=== PATIENT | female | born 1970 ===

== ENCOUNTER 2021-08-04 12:54 | Outpatient (REF) | payer OTHER, SELFPAY ==
--- NOTE | ~2021-08-04 | MM_ITS ---
EXAMINATION: MM SCREENING DIGITAL BREAST TOMOSYNTHESIS, BILATERAL CLINICAL INFORMATION: Screening. Asymptomatic. The lifetime risk of breast cancer based on the Tyrer-Cuzick Model is 10%. COMPARISON: Outside mammography: 02/03/2018, 12/17/2013 ([facility]). TECHNIQUE: Digital breast tomosynthesis is performed in both the craniocaudal and mediolateral oblique views along with computer-aided detection (CAD). Synthesized 2D images are generated from the tomosynthesis. FINDINGS: There are scattered areas of fibroglandular density (ACR BI-RADS breast composition Category b). There are no significant masses, abnormal calcifications, or other abnormalities. Parenchymal pattern is similar to prior studies. No developing density or interval architectural abnormality. Skin contours are smooth. MM/MM tomosynthesis screening BI IMPRESSION: No mammographic evidence of malignancy. ASSESSMENT: BI-RADS 1: Negative RECOMMENDATION: Routine annual mammography screening. This patient's information was entered into a reminder system with a target due date for their next mammogram.
--- NOTE | ~2021-08-04 | MM_ITS ---
EXAMINATION: BONE DENSITOMETRY CLINICAL INDICATION: Asymptomatic menopausal state. COMPARISON: None (current study represents initial baseline exam). TECHNIQUE: Using a [employer] DXA System (software version: 13.1) manufactured by [employer], dual-energy x-ray absorptiometry was performed of the lumbar spine and left hip. The images are of good technical quality. Summary results are attached. FINDINGS: AP SPINE L1-L4: BMD 1.308 g/cm2, Z-score 1.9, T-score 1.1, normal. LEFT FEMUR, NECK: BMD 0.847 g/cm2, Z-score -0.3, T-score -1.4, osteopenia. LEFT FEMUR, TOTAL: BMD 0.841 g/cm2, Z-score -0.6, T-score -1.3, osteopenia. IDENTIFIED RISK FACTORS: Low calcium intake, family history (parental hip fracture). HISTORY OF FRACTURE: None listed. MEDICATIONS: Calcium supplements or multivitamin, vitamin D. MM/XR DEXA axial skeleton IMPRESSION: 1. DIAGNOSIS: Osteopenia based on the lowest T-score value of -1.4 in the femoral neck applying World Health Organization criteria. 2. 10-YEAR FRACTURE RISK PREDICTION, FRAX: Major osteoporotic fracture (clinical spine, forearm, hip or shoulder) 10.2%. Hip fracture 0.4%. 3. Treatment Recommendations: NOF guidelines recommend consideration for treatment in postmenopausal women and men age 50 and older presenting with the following: -A hip or vertebral (clinical or morphometric) fracture. -T-score less than or equal to -2.5 at the femoral neck or spine after appropriate evaluation to exclude secondary causes. -Low bone mass at the hip or spine and a 10-year fracture probability by FRAX of greater than or equal to 3% for hip fracture or greater than or equal to 20% for major osteoporotic fracture based on the [place] adapted WHO algorithm. 4. Other Recommendations: All treatment decisions require clinical judgment and consideration of individual patient factors, including patient preferences, comorbidities, previous drug use, risk factors not captured in the FRAX model (e.g. frailty, falls, vitamin D deficiency, increased bone turnover, interval significant decline in bone density) and possible under or overestimation of fracture risk by FRAX. Additional medical evaluation for secondary cause of low bone mineral density may be appropriate. FUTURE SCAN RECOMMENDATION: People with diagnosed cases of osteoporosis or at high risk for fracture should have regular bone mineral density tests. For patients eligible for Medicare, routine testing is allowed once every 2 years. The testing frequency can be increased to one year for patients who have rapidly progressing disease, those who are receiving or discontinuing medical therapy to restore bone mass, or have additional risk factors.
== END 2021-08-04 12:55 | disposition home or self-care (01) ==
LOC: HO.MAMMO 12:54
PROVIDERS: PCP Internal Medicine; Visit Provider Internal Medicine
DX: Z12.31 Encounter for screening mammogram for malignant neoplasm of breast (principal); Z13.820 Encounter for screening for osteoporosis; Z78.0 Asymptomatic menopausal state
CPT/HCPCS: 77063; 77067; 77080

== ENCOUNTER 2022-08-06 10:27 | Outpatient (REF) | payer OTHER, SELFPAY ==
--- NOTE | ~2022-08-06 | MM_ITS ---
EXAMINATION: MM SCREENING DIGITAL BREAST TOMOSYNTHESIS, BILATERAL CLINICAL INFORMATION: Screening. Asymptomatic. The lifetime risk of breast cancer based on the Tyrer-Cuzick Model is 14.1%. COMPARISON: Mammography: August 04, 2021 and studies dating back to December 17, 2013 TECHNIQUE: Digital breast tomosynthesis is performed in both the craniocaudal and mediolateral oblique views along with computer-aided detection (CAD). Synthesized 2D images are generated from the tomosynthesis. FINDINGS: There are scattered areas of fibroglandular density (ACR BI-RADS breast composition Category b). There are no significant masses, abnormal calcifications, or other abnormalities. MM/MM tomosynthesis screening BI IMPRESSION: No significant changes from prior exam. ASSESSMENT: BI-RADS 1: Negative RECOMMENDATION: Routine annual mammography screening. This patient's information was entered into a reminder system with a target due date for their next mammogram.
== END 2022-08-06 10:28 | disposition home or self-care (01) ==
LOC: HO.MAMMO 10:27
PROVIDERS: PCP Internal Medicine; Visit Provider Internal Medicine
DX: Z12.31 Encounter for screening mammogram for malignant neoplasm of breast (principal)
CPT/HCPCS: 77063; 77067

== ENCOUNTER 2022-10-16 08:22 | Outpatient (REF) | payer OTHER, SELFPAY ==
[2022-10-16 10:42] LABS: MANUAL DIFF FLAG NO
[2022-10-16 10:49] LABS: Basophils Percent Auto 0.8 % (0-2); Eosinophils Absolute Auto 0.3 X10*3/uL (0.0-0.4); Eosinophils Percent Auto 5.9 % (0-4); Hematocrit 38.7 % (37.0-47.0); Hemoglobin 12.3 g/dl (12.0-16.0); Imm Gran Abs Auto 0.01 X10*3/uL (0.00-0.03); Imm Gran Pct Auto 0.2 % (0.0-0.4); Lymphocytes Absolute Auto 1.4 X10*3/uL (1.2-4.9); Lymphocytes Percent Auto 27.6 % (20-40); Mean Corpuscular HGB Conc 31.8 g/dl (31.0-35.0); Mean Corpuscular Hemoglobin 31.3 pg (27.0-33.0); Mean Corpuscular Volume 98.5 fL (80.0-98.0); Mean Platelet Volume 12.4 fL (9.4-12.3); Monocytes Absolute Auto 0.3 X10*3/uL (0.1-1.2); Monocytes Percent Auto 6.5 % (2-11); Neutrophils Absolute Auto 2.9 x10*3/uL (2.0-8.3); Platelet Count 170 X10*3/uL (160-400); Red Blood Count 3.93 X10*6/uL (4.20-5.50); Red Cell Distribution Width 13.5 % (11.0-16.0); White Blood Count 4.9 X10*3/uL (4.8-10.8)
[2022-10-16 11:03] LABS: Alanine Aminotransferase 23 U/L (0-31); Alkaline Phosphatase 49 U/L (39-117); Anion Gap 10 (12-20); Aspartate Amino Transferase 24 U/L (5-31); Bilirubin Total 0.8 mg/dL (0.0-1.0); Blood Urea Nitrogen 20 mg/dL (9-16); Calcium 9.4 mg/dL (8.4-10.2); Carbon Dioxide 29 mmol/L (22-29); Chloride 109 mmol/L (96-108); Cholesterol 181 mg/dL; Estimated Glomerular Filt Rate > 60; Glucose Fasting 89 mg/dL (60-99); HDL Cholesterol 66 mg/dL; LDL Cholesterol Calculated 100 mg/dl; Sodium 144 mmol/L (135-145); Total Protein 6.7 g/dL (6.5-8.0); Triglycerides 75 mg/dL
== END 2022-10-16 08:23 | disposition home or self-care (01) ==
LOC: HO.10HDL 08:22
PROVIDERS: Visit Provider Internal Medicine
DX: E78.5 Hyperlipidemia, unspecified (principal); G35 Multiple sclerosis
CPT/HCPCS: 36415; 80053; 80061; 85025

== ENCOUNTER 2023-08-12 10:10 | Outpatient (REF) | payer OTHER, SELFPAY | END 2023-08-12 10:11 | disposition home or self-care (01) | LOC: HO.MAMMO 10:10 | PROVIDERS: PCP Internal Medicine; Visit Provider Internal Medicine | DX: Z12.31 Encounter for screening mammogram for malignant neoplasm of breast (principal) | CPT/HCPCS: 77063; 77067 ==

== ENCOUNTER → 2023-08-12 10:15 | Outpatient (BNV) | payer OTHER, SELFPAY | PROVIDERS: PCP Internal Medicine; Visit Provider Radiology Diagnostic Radiology | DX: Z12.31 Encounter for screening mammogram for malignant neoplasm of breast (principal) | CPT/HCPCS: 77063; 77067 ==

== ENCOUNTER 2023-09-12 09:56 | Outpatient (AMB) | payer OTHER, SELFPAY ==
[2023-09-12 10:04] VITALS: BP 108/78; BMI 20.8
--- NOTE | 2023-09-12 10:04 | A.OFFPC_ITS ---
Vital Signs 09/12/23 10:04 Height 5 ft 5 in Weight 125 lb BMI 20.8 BP 108/78 Blood Pressure Location Lt brachial Position Sitting Intake Visit Reasons: Diarrhea/ 2 Months Intake Note: Patient here c/o diarrhea for 3 month Department Administrator Required: No Accompanied by: Self / Same As Patient Allergies acetaminophen [From Percocet] Allergy (Severe, Verified 09/12/23 10:20) tachycardia oxycodone [From Percocet] Allergy (Severe, Verified 09/12/23 10:20) tachycardia Penicillins Allergy (Intermediate, Verified 09/12/23 10:20) tingling Medication List - Last Reconciled 09/12/23 by Opal Parra MD No Known Home Meds Tobacco use date assessed: 09/12/23 Dental Screening Dental Screen Date: 09/12/23 Did you have a dental visit in the last 12 months?: Yes Did you have a dental problem in the last 6 months where you did not have access to dental care?: No Was dental information given to patient?: Patient has dentist HPI HPI Comments History of Present Illness Details This is a 52-year-old female with multiple sclerosis that complains of diarrhea that started in May 2023. Occasionally has fresh blood in the toilet paper after a bowel movement. Denies any fever. Has nausea with vomiting every 3 weeks since May 2023. No sick contacts in her household. No recent traveling or eating raw hamburgers or oysters. No change in diet. She has unintentionally lost about 8-10 lb since May. Sister of stomach cancer at 63 years old last month. ON LICENSE OF [facility] Medical History (Updated 09/12/23 @ 10:32 by Opal Parra MD) Postmenopausal Dyslipidemia Multiple sclerosis Surgical History Hx of colonoscopy History of ankle surgery History of Family History (Updated 09/12/23 @ 10:33 by Opal Parra MD) Mother Diabetes Hypertension Glaucoma Celiac disease Dementia Father Stroke Hypertension Sister Stomach cancer Social History Housing: House Alcohol intake: current Alcohol intake frequency: a few times a month Alcohol type: hard liquor Patient Tobacco Use Status: Former Tobacco user Tobacco use type: Cigarette e-Cigarette/Vaping Use: Never Used Second Hand Smoke Exposure: No service: No Current occupational status: employed Current occupational exposures/hazards: No Cognitive needs: No Hearing needs: No Vision needs: No Questionnaire PHQ-9 Over the last 2 weeks, how often have you been bothered by any of the following problems? 1. Little interest or pleasure in doing things: not at all 2. Feeling down, depressed, or hopeless: not at all 3. Trouble falling or staying asleep, or sleeping too much: not at all 4. Feeling tired or having little energy: not at all 5. Poor appetite or overeating: not at all 6. Feeling bad about yourself - or that you are a failure or have let yourself or your family down: not at all 7. Trouble concentrating on things, such as reading the newspaper or watching television: not at all 8. Moving or speaking so slowly that other people could have noticed. Or the opposite - being so fidgety or restless that you have been moving around a lot more than usual: not at all 9. Thoughts that you would be better off or of hurting yourself in some way: not at all Total score: 0 Depression Screening Interpretation: Negative Depression Screening Done: Yes 56029 - PHQ-9 Billing: Yes Source: Developed by Drs. Charlie Atkinson, Carina Restrepo, Brady Cerna and colleagues, with an educational chelsey from [employer]. Thrive Questionnaire Date Thrive assessed: 09/12/23 I am a: Patient What is your living situation today?: I have a steady place to live Within the past 12 months, did the food you bought not last and you didn't have the money to get more?: Never true Within the past 12 months, did you worry whether your food would run out before you got money to buy more?: Never true Do you have trouble paying for medicines?: No Do you have trouble getting transportation to medical appointments?: No Do you have trouble paying your heating and electricity bill?: No Do you have trouble taking care of your child, family member or friend?: No Do you have trouble with day-to-day activities such as bathing, preparing meals, shopping, managing finances, etc.?: No Are you currently unemployed and looking for a job?: No Are you interested in more education?: No Please select the resources that you would like help with: None Currently or been in a relationship where the following occur: no concerns reported THRIVE Score: 0 AUDIT C Alcohol Use Questionnaire (AUDIT-C) 1. How often do you have a drink containing alcohol?: Monthly or less 2. How many drinks containing alcohol do you have on a typical day when you are drinking?: 1 or 2 3. How often do you have six or more drinks on one occasion?: Never Total Score: 1 Score Reviewed/Action Taken: No JOSÉ MIGUEL-7 AMB Questionnaire JOSÉ MIGUEL-7 Date JOSÉ MIGUEL - 7 assessed: 09/12/23 Feeling nervous, anxious, or on edge: 0 = Not at all Not being able to stop or control worryin = Not at all Worrying too much about different things: 0 = Not at all Trouble relaxin = Not at all Being so restless that it is hard to sit still: 0 = Not at all Becoming easily annoyed or irritable: 0 = Not at all Feeling afraid as if something awful might happen: 0 = Not at all Total JOSÉ MIGUEL-7 score (0-4 normal; 5-9 mild; 10-14 moderate; 15-21 severe): 0 Source: Developed by Drs. Charlie Atkinson, Carina Restrepo, Brady Cerna and colleagues, with an educational chelsey from [employer]. JOSÉ MIGUEL-7 Assessment Billing JOSÉ MIGUEL-7 Assessment Tool: JOSÉ MIGUEL-7 Assessment 77646 Review of Systems Const All systems reviewed & are unremarkable except as noted in HPI and below Eyes Reports no additional complaints, Denies change in vision and Denies other visual disturbances Card Denies chest pain at rest, Denies chest pain with activity, Denies edema, Denies irregular heart rhythm, Denies claudication, Denies dyspnea, Denies dyspnea on exertion, Denies orthopnea, Denies paroxysmal nocturnal dyspnea and Denies slow heart rate Resp Denies cough, Denies dyspnea and Denies dyspnea on exertion GI Denies abdominal pain, Denies change in bowel habits, Denies excessive flatus, Denies nausea and Denies vomiting Denies urinary incontinence, Denies urinary hesitancy and Denies urinary urgency Physical exam (Primary Care) Vital Signs: Last Vital Signs BP 108/78 09/12/23 10:04 BMI result Body Mass Index 20.8 Tobacco/Smoking Status: Tobacco use Status Tobacco use date assessed 09/12/23 09/12/23 10:11 Patient Tobacco Use Status Former Tobacco user 09/12/23 10:11 Tobacco use type Cigarette 09/12/23 10:11 e-Cigarette/Vaping Use Never Used 09/12/23 10:11 PHQ-9: PHQ-9 Score PHQ-9: Total score 0 09/12/23 10:26 Depression Screening Interpretation: Negative Thrive Assessment: Date of Thrive Assessment Date Thrive assessed 09/12/23 09/12/23 10:11 Currently or been in a relationship where the following occur: no concerns reported Resp Effort & Inspection: normal respiratory effort Auscultation: clear to auscultation bilaterally Cardio Jugular venous distension: no JVD Rate: regular rate Rhythm: regular rhythm Heart sounds: S1 normal heart sound present and S2 normal heart sound present GI Inspection: Yes normal to inspection Palpation (GI): Soft to palpation and nontender Auscultation: normal bowel sounds Skin General skin exam: no rashes or lesions noted Extrem General: Yes full ROM Assessment and Plan Assessment & Plan (1) Chronic diarrhea: Code(s): K52.9 - Noninfective gastroenteritis and colitis, unspecified Plan: Stool sample ordered. CT scan of abdomen and pelvis order. Referred to Gastroenterology. Labs order. (2) Multiple sclerosis: Comment: [facility] Code(s): G35 - Multiple sclerosis Plan: Follow-up with [facility]. Orders: Orders Celiac Disease Panel Today K52.9 - Noninfective gastroenteritis and colitis, unspecified Giardia Ag Stool EIA Today K52.9 - Noninfective gastroenteritis and colitis, unspecified, R19.7 - Diarrhea, unspecified CT abdomen pelvis wo IV con Today K52.9 - Noninfective gastroenteritis and colitis, unspecified Cyclospora & Isospora Stool Today K52.9 - Noninfective gastroenteritis and colitis, unspecified H pylori Ag Stool Today K52.9 - Noninfective gastroenteritis and colitis, unspecified, R19.7 - Diarrhea, unspecified Thyroid Stimulating Hormone Today K52.9 - Noninfective gastroenteritis and colitis, unspecified Comprehensive [place]. Panel Fast Today K52.9 - Noninfective gastroenteritis and colitis, unspecified Lipid Panel Today Z00.00 - Encounter for general adult medical examination without abnormal findings Referrals Gastroenterology Referral K52.9 - Noninfective gastroenteritis and colitis, unspecified Coding Level of Care Code Est Pt Level 3 (66635) Diagnoses Chronic diarrhea K52.9 Multiple sclerosis G35 Additional Codes JOSÉ MIGUEL-7 Assessment Billing - JOSÉ MIGUEL-7 Assessment Tool: JOSÉ MIGUEL-7 Assessment 93377 ([id number]) Time Spent (min) 20
== END 2023-09-12 10:47 | disposition home or self-care (01) ==
PROVIDERS: PCP Internal Medicine; Visit Provider Internal Medicine
DX: K52.9 Noninfective gastroenteritis and colitis, unspecified (principal); G35 Multiple sclerosis
CPT/HCPCS: 99213

== ENCOUNTER 2023-09-13 10:15 | Outpatient (REF) | payer OTHER, SELFPAY ==
[2023-09-13 11:58] LABS: Alanine Aminotransferase 48 U/L (0-31); Albumin Level 3.8 g/dL (3.5-5.0); Alkaline Phosphatase 71 U/L (39-117); Anion Gap 9 (12-20); Aspartate Amino Transferase 48 U/L (5-31); Bilirubin Total 0.4 mg/dL (0.0-1.0); Blood Urea Nitrogen 13 mg/dL (9-16); Calcium 9.4 mg/dL (8.4-10.2); Carbon Dioxide 29 mmol/L (22-29); Chloride 110 mmol/L (96-108); Cholesterol 183 mg/dL (<200); Estimated Glomerular Filt Rate > 60; Glucose Fasting 99 mg/dL (60-99); HDL Cholesterol 62 mg/dL (>40); LDL Cholesterol Calculated 110 mg/dL (<100); Potassium 3.3 mmol/L (3.3-5.1); Sodium 145 mmol/L (135-145); Thyroid Stimulating Hormone 1.44 uIU/mL (0.32-4.0); Total Protein 7.7 g/dL (6.5-8.0); Triglycerides 59 mg/dL (<150)
[2023-09-19 20:43] LABS: Immunoglobulin A 155 mg/dL (47-310); Transglutaminase IgA <1.0 U/mL
== END 2023-09-13 10:16 | disposition home or self-care (01) ==
LOC: HO.LAB 10:15
PROVIDERS: PCP Internal Medicine; Visit Provider Internal Medicine
DX: Z00.00 Encounter for general adult medical examination without abnormal findings (principal); Z13.6 Encounter for screening for cardiovascular disorders; K52.9 Noninfective gastroenteritis and colitis, unspecified
CPT/HCPCS: 36415; 80053; 80061; 82784; 84443; 86364; 87015; 87207; 87329; 87338

== ENCOUNTER 2023-09-23 13:57 | Outpatient (REF) | payer OTHER, SELFPAY ==
--- NOTE | ~2023-09-23 | CT_ITS ---
EXAMINATION: CT ABDOMEN AND PELVIS WITH CONTRAST CLINICAL INFORMATION: Noninfected gastroenteritis and colitis unspecified. COMPARISON: None available. TECHNIQUE: Multidetector volumetric images were obtained from the superior aspect of the liver through the pubic symphysis following administration 85 mL of Omnipaque 350 intravenous contrast. Sagittal and coronal reformatted images were obtained on the technologist's workstation. Oral contrast: Yes This CT examination was performed using dose optimization techniques as appropriate, variously including the following: *Automated exposure control *Adjustment of mA and/or kV according to patient size (this includes techniques or standardized protocols for targeted exams where dose is matched to indication/reason for exam; i.e. extremities or head) *Use of iterative reconstruction technique DLP: 286 mGy-cm FINDINGS: LUNG BASES: Minor linear atelectasis at the left lung base. LIVER, GALLBLADDER, AND BILIARY TREE: The liver is normal in size, shape, and attenuation. No focal hepatic lesion or biliary ductal dilatation is present. The gallbladder is unremarkable with no evidence of radiopaque gallstones, gallbladder wall thickening, or obvious pericholecystic inflammatory changes. PANCREAS: No discrete pancreatic mass. No pancreatic ductal dilatation. SPLEEN: Normal size. No focal mass. ADRENAL GLANDS: No adrenal mass. KIDNEYS AND URETERS: Symmetric nephrograms. No nephrolithiasis or hydronephrosis. Small simple cyst in the left mid kidney for which no imaging follow-up is recommended. BLADDER: Unremarkable. GASTROINTESTINAL TRACT: The stomach appears unremarkable. The small and large bowel are normal in caliber. No focal bowel wall thickening or surrounding inflammatory changes. Medication capsules are seen in the cecum. ABDOMINAL WALL: No significant hernia is appreciated. LYMPH NODES: No lymphadenopathy. VASCULAR: No aortic aneurysm. The main portal vein and hepatic veins are patent. The IVC is not enhanced due to bolus timing but is normal in caliber. PELVIC VISCERA: Unremarkable. OSSEOUS STRUCTURES: Mild degenerative disc disease at L4-L5 and L5-S1 CT/CT abdomen pelvis w IV con IMPRESSION: No CT evidence of gastroenteritis/colitis. Fleischner guidelines were followed.
[2023-09-23] MEDS: iohexoL 350 MG/ML 100 ML INFUS..BTL 85 ML IV (16:22)
[2023-09-23] MEDS: Barium Sulfate Oral (Berry) 450 ML ORAL.SUSP 900 ML PO (16:22)
== END 2023-09-23 13:58 | disposition home or self-care (01) ==
LOC: HO.CT 13:57
PROVIDERS: PCP Internal Medicine; Visit Provider Internal Medicine
DX: K52.9 Noninfective gastroenteritis and colitis, unspecified (principal)
CPT/HCPCS: 74177; Q9967

== ENCOUNTER 2023-10-14 10:43 | Outpatient (AMB) | payer OTHER, SELFPAY ==
[2023-10-14 10:45] VITALS: BP 106/61; PULSE 63; BMI 20.9
--- NOTE | 2023-10-14 10:45 | A.OFFVIS_ITS ---
Vital Signs 10/14/23 10:45 Height 5 ft 5 in Weight 125 lb 10.616 oz BMI 20.9 BP 106/61 Blood Pressure Location Lt brachial Position Sitting Pulse 63 Intake Visit Reasons: Gastritis, Colitis Intake Note: New patient presents in office today for gastritis and colitis. CC: Patient states that shortly after Deidra that her was sick with covid. She began to have diarrhea and until today this morning that she states she had a normal BM. She also reports she was vomiting every other week and last time she vomited was in July. She states that she sees a litigation partner provider that suggested that she might have a leaky gut. Per patient she is unsure if this is a body reaction to stress, she recently loss a sister to stomach cancer and her mother has dementia. Manager Electronic Required: No Accompanied by: Self / Same As Patient Allergies acetaminophen [From Percocet] Allergy (Severe, Verified 10/14/23 10:54) tachycardia oxycodone [From Percocet] Allergy (Severe, Verified 10/14/23 10:54) tachycardia Penicillins Allergy (Intermediate, Verified 10/14/23 10:54) tingling HPI Comments Details: 53 y.o F with PMH of MS who is here for chronic diarrhea and intermittent vomiting. Pt reports having sx a few weeks after deidra and at that time assumed was covid. However persisted even after a few weeks. Was having 7-10 watery BMs per day, even at night time. Stools did not have blood in it. Appetite was ok. Lost almost 10 lbs since May. With this also has intermittent vomiting. Happens on and off every other week. Was throwing up 1-2 times a day. Now since July sx have been improving. In fact today, BMs are formed. Stool was neg for infection. Last colo 2020 - was normal. Nathalia Angel MD. Does not recall interval. Sister: stomach ca dx at 61 y.o of age - in July 2023. [facility] Medical History Postmenopausal Dyslipidemia Multiple sclerosis Surgical History Hx of colonoscopy History of ankle surgery History of Family History Mother Diabetes Hypertension Glaucoma Celiac disease Dementia Father Stroke Hypertension Sister Stomach cancer Social History Housing: House Alcohol intake: current Alcohol intake frequency: a few times a month Alcohol type: hard liquor Patient Tobacco Use Status: Former Tobacco user Tobacco use type: Cigarette e-Cigarette/Vaping Use: Never Used Second Hand Smoke Exposure: No service: No Current occupational status: employed Current occupational exposures/hazards: No Cognitive needs: No Hearing needs: No Vision needs: No Review of Systems Const All systems reviewed & are unremarkable except as noted in HPI and below Physical Exam Vital Signs: Last Vital Signs Pulse 63 10/14/23 10:45 BP 106/61 10/14/23 10:45 BMI result Body Mass Index 20.9 NAD, nonicteric Abd soft, nontender A/Ox3, normal gait Assessment & Plan Assessment & Plan (1) Chronic diarrhea: Code(s): K52.9 - Noninfective gastroenteritis and colitis, unspecified Category: Medical (2) Intermittent vomiting: Code(s): R11.10 - Vomiting, unspecified Category: Medical (3) Family history- stomach cancer: Code(s): Z80.0 - Family history of malignant neoplasm of digestive organs Category: Medical (4) Elevated transaminase level: Code(s): R74.01 - Elevation of levels of liver transaminase levels Category: Medical Plan Ddx include IBD, microscopic colitis, IBD, IBS. Will book for EGD and colonoscopy for further evaluation. CRP and fecal calpro ordered. In terms of elevated transaminases, unclear if transient or chronic. Recheck LFTs Hep serologies Pt also cautioned re herbal supplements. Follow up after procedures. Orders: Orders Liver Panel Today R74.01 - Elevation of levels of liver transaminase levels Hepatitis A IgG Today R74.01 - Elevation of levels of liver transaminase levels Hepatitis B Core Antibody Today R74.01 - Elevation of levels of liver transaminase levels Hepatitis B Surface Antigen Today R74.01 - Elevation of levels of liver transaminase levels C Reactive Protein Today K52.9 - Noninfective gastroenteritis and colitis, unspecified Complete Blood Count no Diff Today R74.01 - Elevation of levels of liver transaminase levels Hepatitis B Surface Antibody Today R74.01 - Elevation of levels of liver transaminase levels Hepatitis C Antibody Today R74.01 - Elevation of levels of liver transaminase levels Calprotectin, Fecal Today K52.9 - Noninfective gastroenteritis and colitis, unspecified Medications: New peg 3350-electrolytes 236-22.74-6.74 -5.86 gram (Golytely) as per split prep instructions, until fecal effluent is clear 240 mL PO Q10M 4,000 mL 0RF colonoscopy Coding Level of Care Code New Pt Level 4 (60347) Diagnoses Chronic diarrhea K52.9 Intermittent vomiting R11.10 Family history- stomach cancer Z80.0 Elevated transaminase level R74.01
== END 2023-10-14 12:04 | disposition home or self-care (01) ==
PROVIDERS: PCP Internal Medicine; Visit Provider Internal Medicine
DX: K52.9 Noninfective gastroenteritis and colitis, unspecified (principal); R11.10 Vomiting, unspecified; Z80.0 Family history of malignant neoplasm of digestive organs; R74.01 Elevation of levels of liver transaminase levels
CPT/HCPCS: 99204

== ENCOUNTER → 2023-10-14 10:43 | Outpatient (BNVA) | payer OTHER, SELFPAY | PROVIDERS: PCP Internal Medicine; Visit Provider Internal Medicine ==

== ENCOUNTER 2023-10-29 11:55 | Day surgery (SDC) | payer OTHER, SELFPAY ==
--- NOTE | 2023-10-25 14:45 | HO.ANESPROP2 ---
Documented by User: Olive Mcknight NP 10/25/23 14:46 HPI - Anesthesia Eval Consult details Narrative: 53yo F for Upper Endoscopy and Colonoscopy PMFSH Active Problems Active Problems: All Active Problems Elevated transaminase level (Acute) Family history- stomach cancer (Acute) Intermittent vomiting (Acute) Chronic diarrhea (Acute) Encounter for physical examination (Acute) Postmenopausal (Acute) Dyslipidemia (Acute) Multiple sclerosis (Acute) Past Medical History Medical History Postmenopausal Dyslipidemia Multiple sclerosis Family History Family History Mother Diabetes Hypertension Glaucoma Celiac disease Dementia Father Stroke Hypertension Sister Stomach cancer Surgical History Surgical History Hx of colonoscopy History of ankle surgery History of Social History Social History Housing: House Alcohol intake: current Alcohol intake frequency: a few times a month Alcohol type: hard liquor Patient Tobacco Use Status: Current everyday Tobacco user Tobacco use type: Cigarette Cigarettes Per Day: 2 e-Cigarette/Vaping Use: Never Used Second Hand Smoke Exposure: No Use of substances other than those prescribed or required for medical reasons: No Are you DNR?: No Advance Directives: No Advance Directives Information Provided: Yes service: No Current occupational status: employed Current occupational exposures/hazards: No Cognitive needs: No Hearing needs: No Vision needs: No Meds Allergies Allergy/AdvReac Type Severity Reaction Status Date / Time acetaminophen [From Percocet] Allergy Severe tachycardia Verified 10/29/23 13:36 oxycodone [From Percocet] Allergy Severe tachycardia Verified 10/29/23 13:36 Penicillins Allergy Intermediate tingling Verified 10/29/23 13:36 Home Medications ?Medication ?Instructions ?Recorded ?Confirmed ?Last Taken ?Type ascorbic acid (vitamin C) 1,000 mg 1 g PO BID 10/14/23 10/29/23 Unknown History capsule biotin 10,000 mcg capsule 10,000 mcg PO DAILY 10/14/23 10/29/23 Unknown History coenzyme Q10 30 mg capsule 300 mg PO DAILY 10/14/23 10/29/23 Unknown History magnesium glycinate 100 mg tablet 100 mg PO DAILY 10/14/23 10/29/23 Unknown History turmeric 400 mg capsule 700 mg PO DAILY 10/14/23 10/29/23 Unknown History Assessment and Plan Assessment Anesthesia Assessment: Chart Reviewed Documented by User: Shilpa Carmona MD 10/29/23 14:41 PMFSH Past Medical History Medical History Postmenopausal Dyslipidemia Multiple sclerosis Functional capacity: uses cane/walker Patient : No Family History Family History Mother Diabetes Hypertension Glaucoma Celiac disease Dementia Father Stroke Hypertension Sister Stomach cancer Surgical History Surgical History Hx of colonoscopy History of ankle surgery History of History of Problems with Anesthesia: No Social History Social History Housing: House Alcohol intake: current Alcohol intake frequency: a few times a month Alcohol type: hard liquor Patient Tobacco Use Status: Current everyday Tobacco user Tobacco use type: Cigarette Cigarettes Per Day: 2 e-Cigarette/Vaping Use: Never Used Second Hand Smoke Exposure: No Use of substances other than those prescribed or required for medical reasons: No Are you DNR?: No Advance Directives: No Advance Directives Information Provided: Yes service: No Current occupational status: employed Current occupational exposures/hazards: No Cognitive needs: No Hearing needs: No Vision needs: No Meds Allergies Allergy/AdvReac Type Severity Reaction Status Date / Time acetaminophen [From Percocet] Allergy Severe tachycardia Verified 10/29/23 13:36 oxycodone [From Percocet] Allergy Severe tachycardia Verified 10/29/23 13:36 Penicillins Allergy Intermediate tingling Verified 10/29/23 13:36 Home Medications ?Medication ?Instructions ?Recorded ?Confirmed ?Last Taken ?Type ascorbic acid (vitamin C) 1,000 mg 1 g PO BID 10/14/23 10/29/23 Unknown History capsule biotin 10,000 mcg capsule 10,000 mcg PO DAILY 10/14/23 10/29/23 Unknown History coenzyme Q10 30 mg capsule 300 mg PO DAILY 10/14/23 10/29/23 Unknown History magnesium glycinate 100 mg tablet 100 mg PO DAILY 10/14/23 10/29/23 Unknown History turmeric 400 mg capsule 700 mg PO DAILY 10/14/23 10/29/23 Unknown History Exam Airway Mallampati Class: II TM Dist: >3cm Neck ROM: Full Loose/Missing/Broken Teeth: No Heart: RRR Lungs: CTA Assessment and Plan Assessment Anesthesia Assessment: Anesthesia Plan Discussed Final Anesthetic Review History of Problems with Anesthesia: No NPO: Yes ASA Class: II Final Preanesthetic Review: Meds/Allgs Chart Reviewed, Consent Obtained/Reviewed and Anes Risks/Benef Reviewed Patient Risk: Low Procedure Risk: Intermediate Anesthetic Plan Anesthetic Plan: MAC: Disposition: Standard PACU
[2023-10-29 13:37] VITALS: BMI 20.5
[2023-10-29 13:38] VITALS: BP 104/57; PULSE 55; RESP 16; TEMP 36.9; O2SAT 97
--- NOTE | 2023-10-29 13:40 | MHC.SHP ---
Pre-Procedural Eval Section A - 24 Hr Update-Section A only Date of Service: 10/29/23 The patient has been examined within 24 hours of the surgical procedure. The History & Physical has been completed within 30 days and I have reviewed it.: Yes Section B - Complete if H&P > 30 days Chief Complaint: Noninfective gastroenteritis and colitis,vomiting, Allergies: Allergies Allergy/AdvReac Type Severity Reaction Status Date / Time acetaminophen [From Percocet] Allergy Severe tachycardia Verified 10/29/23 13:36 oxycodone [From Percocet] Allergy Severe tachycardia Verified 10/29/23 13:36 Penicillins Allergy Intermediate tingling Verified 10/29/23 13:36 Plan Diagnosis/Plan: Unchanged I have reviewed the history and physical and performed a pertinent physical examination on my patient. No changes have occurred unless specified. Time Spent With Patient Time: Total time managing care of this patient today ____ minutes.
[2023-10-29] MEDS: Lactated Ringers 1,000 ML 100 ML IVCONT (14:04)
--- NOTE | 2023-10-29 14:12 | P.OPN-COLO_ITS ---
Colonoscopy Operative Note Operative Note Date of Service: 10/29/23 Narrative: Procedure: Upper endoscopy and colonoscopy Indication: Nausea, vomiting, diarrhea Endoscopist: Quiana Gonzalez MD Anesthesia Provider: Dr Bibi Carmona Anesthesia type: MAC Instrument: [id number] and [id number]-[id number] EGD Procedure:?? The procedure, indications, preparation and potential complications were reviewed with the patient, who indicated understanding and gave written informed consent to proceed. The endoscope was introduced through the mouth, and advanced to the 2nd part of the duodenum. The mucosa was carefully examined on slow withdrawal of the endoscope. The patient tolerated the procedure well. There were no immediate complications.? EGD Findings:? * Esophagus:? Normal esophageal mucosa. Z line was at 40 cm. There was a small hiatal hernia. Cold forceps biopsies were taken from the middle and lower esophagus to rule out eosinophilic esophagitis. * Stomach:? Scant heme and erosions in the antrum. Numerous gastric polyps were seen in body and fundus of the stomach. Retroflexion was performed in the cardia that showed Hill grade III hiatal hernia. Random cold forceps biopsies were taken to rule out H pylori. * Duodenum:? Duodenal mucosa was normal to the extent of visualisation. Cold forceps biopsies were taken from the duodenal bulb and 2nd portion of the duodenal to rule out celiac sprue. Colonoscopy Procedure:? The patient was then turned for the colonoscopy. A digital rectal exam was performed which was normal.? A distal attachment cap was affixed to the tip of the scope and the colonoscope was then inserted through the anus and advanced through the colon and advanced to the cecum at 75 cm and terminal ileum.? Appendiceal orifice and ileocecal valve were identified. Mucosa was carefully examined under high definition white light as the instrument was slowly withdrawn in a retrograde panoramic fashion. Retroflexion was performed in rectum. The procedure was not difficult. The quality of the prep was BBPS: 3+3+2 = adequate Withdrawal time 7 minutes Limitations: No limitations Findings: Mucosa: Normal colon and terminal ileum mucosa. Cold forceps biopsies were bro en from the right and left side of the colon to rule out microscopic colitis. Protruding lesions: * Large internal hemorrhoids without stigmata of recent bleeding. Impression: 1. Normal esophagus (biopsy) 2. Hiatal hernia 3. Gastritis (biopsy) 4. Gastric polyps (biopsy) 5. Normal duodenum (biopsy) 6. Normal colon and terminal ileum mucosa (biopsy) 7. Internal hemorrhoids Recommendations:?? * Follow-up path results * Start omeprazole 20mg for 4 weeks * If colon biopsies confirm microscopic colitis, will Rx budesonide. * Repeat colonoscopy for asymptomatic colorectal cancer screening in 10 years.
[2023-10-29 15:15] VITALS: BP 93/50; PULSE 70; RESP 18; TEMP 36.6; O2SAT 98
[2023-10-29 15:30] VITALS: BP 102/54; PULSE 50; RESP 18; O2SAT 98
[2023-10-29 15:45] VITALS: BP 109/49; PULSE 68; RESP 18; TEMP 36.6; O2SAT 98
== END 2023-10-29 16:14 | disposition home or self-care (01) ==
PROVIDERS: PCP Internal Medicine; Visit Provider Internal Medicine
PROC: (CPT 45380; principal; 2023-10-29 14:00)
DX: K52.9 Noninfective gastroenteritis and colitis, unspecified (principal); R11.10 Vomiting, unspecified; K64.8 Other hemorrhoids; K29.70 Gastritis, unspecified, without bleeding; K31.7 Polyp of stomach and duodenum; K44.9 Diaphragmatic hernia without obstruction or gangrene; Z80.0 Family history of malignant neoplasm of digestive organs; Z88.5 Allergy status to narcotic agent
CPT/HCPCS: 45380; 43239; 88305; 88313; 88342; J2704

== ENCOUNTER → 2023-10-29 11:55 | Outpatient (BNV) | payer OTHER, SELFPAY | PROVIDERS: PCP Internal Medicine; Visit Provider Internal Medicine | DX: R11.2 Nausea with vomiting, unspecified (principal); K29.70 Gastritis, unspecified, without bleeding; K31.7 Polyp of stomach and duodenum; R19.7 Diarrhea, unspecified; K64.0 First degree hemorrhoids | CPT/HCPCS: 43239; 45380 ==

== ENCOUNTER 2023-11-12 13:05 | Outpatient (AMB) | payer OTHER, SELFPAY ==
--- NOTE | 2023-11-12 13:08 | MHC.OFFVIS ---
Vital Signs 11/12/23 13:09 Height 5 ft 5 in Weight 125 lb 10.616 oz BMI 20.9 BP 96/50 L Blood Pressure Location Lt brachial Position Sitting Pulse 56 Intake Visit Reasons: S/p colon/EGD Carlos is out Intake Note: Jenny presents in the office as a follow up EGD and COLO. CC: Here for results - she states that she is not having any concerns. Rate Inserter Required: No Allergies acetaminophen [From Percocet] Allergy (Severe, Verified 11/12/23 13:10) tachycardia oxycodone [From Percocet] Allergy (Severe, Verified 11/12/23 13:10) tachycardia Penicillins Allergy (Intermediate, Verified 11/12/23 13:10) tingling HPI HPI S/p colon/EGD Carlos is out: Details: 53-YEAR-OLD FEMALE new to my practice who had been seeing Dr. Charity perkins in the past is here to follow-up on a colonoscopy screening. COLONOSCOPY Findings: Mucosa: Normal colon and terminal ileum mucosa. Cold forceps biopsies were taken from the right and left side of the colon to rule out microscopic colitis. Protruding lesions: Large internal hemorrhoids without stigmata of recent bleeding. Impression: 1. Normal esophagus (biopsy) 2. Hiatal hernia 3. Gastritis (biopsy) 4. Gastric polyps (biopsy) 5. Normal duodenum (biopsy) 6. Normal colon and terminal ileum mucosa (biopsy) 7. Internal hemorrhoids Recommendations: Follow-up path results Start omeprazole 20mg for 4 weeks If colon biopsies confirm microscopic colitis, will Rx budesonide. Repeat colonoscopy for asymptomatic colorectal cancer screening in 10 years. BIOPSY Received: 10/30/23 Diagnosis A. Duodenum, biopsy: Duodenal mucosa within normal limits. B. Stomach, random, biopsy: Oxyntic mucosa with moderate chronic inactive inflammation; no Helicobacter organisms seen. C. Stomach, polyps: Clinically polypoid oxyntic mucosa with mild chronic inactive inflammation; no Helicobacter organisms seen. D. Esophagus, lower, biopsy: Squamous epithelium within normal limits; no inflammation seen. E. Esophagus, middle, biopsy: Squamous epithelium within normal limits; no inflammation seen. F. Colon, right, biopsy: Colonic mucosa with expansion of lamina propria chronic inflammatory cells and mild crypt disarray. G. Colon, left, biopsy: Chronic inactive colitis. Comment: Fully developed features of microscopic colitis are not seen, despite the preponderance of lamina propria chronic inflammation. The chronicity in the left colon raises the possibility of inflammatory bowel disease; other etiologies such as drug, chronic infection and diverticular disease should also be considered. No dysplasia or granulomata are seen. Clinical History Pre-Op Dx: N/V/D Post-Op Dx: Gastritis, hiatal hernia, gastric polyps, hemorrhoids Microscopic Description A-G. Microscopic sections examined. No metaplastic changes are seen, supported by AB/PAS stains (A- C); no Helicobacter organisms are seen, supported by H. pylori immunostain (B and C). Material Received A. Duodenum bx's B. Random gastric bx's C. Gastric polyps D. Lower esophagus bx's E. Middle esophagus bx's F. Right colon bx's Patient: Jenny Rincon Age/Sex: 53/F MR#: [id number] Page 1 of 2 TODAYS VISIT She has agreeable to a 5 year repeat should we decide that she would fact has inflammatory bowel disease.. The procedure was well tolerated. The results were explained and the patient is agreeable to the follow-up interval as stated. Is not her normal baseline but it is improving from her prior diarrheal spells. Education was provided to tell any 1st degree relatives about their findings to be sure that they are screened by age 45. Educated that they will be put on a recall list when it is time for their repeat scope but should they move out of state or away from the hospital they will need to remember along with their primary to repeat the procedure in a timely fashion to avoid any adverse complications. I explain the results and she is reluctant to start on any intermediate project manager pharmaceuticals. The results are not completely conclusive, but she also has MS so she is a probable candidate for another autoimmune disease. She thinks that the diarrhea, which is improving is r/t her stress. I have sent budesinide and meslamine for her to try. ROV for further consideration with Dr. Gonzalez when she returns. [facility] Medical History Postmenopausal Dyslipidemia Multiple sclerosis Surgical History (Updated 11/12/23 @ 13:11 by DAMIEN Delgado) History of esophagogastroduodenoscopy (EGD) Hx of colonoscopy History of ankle surgery History of Family History Mother Diabetes Hypertension Glaucoma Celiac disease Dementia Father Stroke Hypertension Sister Stomach cancer Social History Housing: House Alcohol intake: current Alcohol intake frequency: a few times a month Alcohol type: hard liquor Patient Tobacco Use Status: Current everyday Tobacco user Tobacco use type: Cigarette Cigarettes Per Day: 2 e-Cigarette/Vaping Use: Never Used Second Hand Smoke Exposure: No service: No Current occupational status: employed Current occupational exposures/hazards: No Cognitive needs: No Hearing needs: No Vision needs: No Review of Systems Const Denies fatigue, Denies fever(s), Denies night sweats, Denies poor appetite and Denies weight loss ENT Reports Normal hearing present, Denies dental pain, Denies dysphagia, Denies hearing loss, Denies mouth pain, Denies odynophagia, Denies throat swelling, Denies tongue swelling and Reports other (Dentition adequate) Card Reports no additional complaints Resp Reports no additional complaints GI Details: Denies abdominal pain, Denies melena, Denies bloating, Denies hematochezia, Denies constipation, Denies GI cramping, Denies dysphagia, Denies excessive flatus, Denies early satiety, Denies heartburn, Denies diarrhea, Reports loose stools, Denies nausea, Denies odynophagia, Denies vomiting and Denies hematemesis Skin/Breast Denies pruritus, Denies lesions, Denies rash and Denies jaundice Neuro Reports Normal hearing present and Denies Abnormal speech present Endo Denies fatigue Aller/Immun Denies throat swelling and Denies tongue swelling Physical Exam Vital Signs: Last Vital Signs Pulse 56 11/12/23 13:09 BP 96/50 L 11/12/23 13:09 BMI result Body Mass Index 20.9 Const General: cooperative, no acute distress, well developed and well groomed Nutritional Appearance: well nourished and thin Orientation/consciousness: oriented to person, oriented to place and oriented to time Limitations: No language barrier HEENT Head: Yes normocephalic and Yes atraumatic Eyes General: appearance normal, both eyes and all related structures Pupils: Equal, round and reactive pupils present Neck Neck: Yes normal visual inspection and Yes no lymphadenopathy Thyroid: Thyroid normal Resp Effort & Inspection: normal respiratory effort and able to speak in complete sentences Auscultation: clear to auscultation bilaterally Cardio Rate: regular rate Rhythm: regular rhythm Heart sounds: Normal, physiologic split S2 sound present Peripheral pulses: radial pulses present and posterior tibial pulses present GI Inspection: No distended and No Abdominal panniculus present Palpation (GI): Soft to palpation, nontender, no guarding, not rigid and No hepatosplenomegaly present Percussion: Yes normal to percussion Auscultation: normal bowel sounds Rectal Exam - Female: deferred Skin General skin exam: no rashes or lesions noted, turgor normal, skin not dry, no jaundice, No spider nevi and no striae Rashes: no rashes Nails: normal Neuro General: oriented to person, oriented to place and oriented to time Cranial nerves: Yes Equal, round and reactive pupils present and Yes Normal hearing present Speech: No Abnormal speech present Extrem General: Yes normal to inspection, No clubbing, No cyanosis and No edema Psych Appearance: grossly normal and well kempt Mental Status: mental status grossly normal Speech and movement: Normal speech and movement present Affect: normal affect Attitude: cooperative Thought process: Normal thought process present and not confabulating Thought content: Normal thought content present Insight: Limited insight present (Psych) Judgement: Limited judgement present (Psych) Assessment & Plan Assessment & Plan (1) Chronic diarrhea: Code(s): K52.9 - Noninfective gastroenteritis and colitis, unspecified Category: Medical Plan She has agreeable to a 5 year repeat should we decide that she would fact has inflammatory bowel disease.. The procedure was well tolerated. The results were explained and the patient is agreeable to the follow-up interval as stated. Is not her normal baseline but it is improving from her prior diarrheal spells. Education was provided to tell any 1st degree relatives about their findings to be sure that they are screened by age 45. Educated that they will be put on a recall list when it is time for their repeat scope but should they move out of state or away from the hospital they will need to remember along with their primary to repeat the procedure in a timely fashion to avoid any adverse complications. I explain the results and she is reluctant to start on any intermediate project manager pharmaceuticals. The results are not completely conclusive, but she also has MS so she is a probable candidate for another autoimmune disease. She thinks that the diarrhea, which is improving is r/t her stress. I have sent budesinide and meslamine for her to try. ROV for further consideration with Dr. Gonzalez when she returns. Medications: New mesalamine (Lialda) 2.4 grams (2 x 1.2 gram) PO DAILY 112 tabs 3RF [address]-ER 9 mg (3 x 3 mg) PO QAM 90 ea 3RF Coding Level of Care Code Est Pt Level 3 (53261) Diagnoses Chronic diarrhea K52.9
[2023-11-12 13:09] VITALS: BP 96/50; PULSE 56; BMI 20.9
== END 2023-11-12 13:40 | disposition home or self-care (01) ==
PROVIDERS: PCP Internal Medicine; Visit Provider Nurse Practitioner
DX: K52.9 Noninfective gastroenteritis and colitis, unspecified (principal)
CPT/HCPCS: 99213

== ENCOUNTER → 2023-11-12 13:05 | Outpatient (BNVA) | payer OTHER, SELFPAY | PROVIDERS: PCP Internal Medicine; Visit Provider Nurse Practitioner ==

== ENCOUNTER 2023-12-11 16:51 | Outpatient (AMB) | payer OTHER, SELFPAY ==
[2023-12-11 16:53] VITALS: BP 102/60; BMI 20.6
--- NOTE | 2023-12-11 16:53 | A.OFFPC_ITS ---
Vital Signs 12/11/23 16:53 Height 5 ft 5 in Weight 124 lb BMI 20.6 BP 102/60 Blood Pressure Location Lt brachial Position Sitting Intake Visit Reasons: PE Intake Note: Patient here for a physical exam Block Stacker Required: No Accompanied by: Self / Same As Patient Allergies acetaminophen [From Percocet] Allergy (Severe, Verified 12/11/23 17:02) tachycardia oxycodone [From Percocet] Allergy (Severe, Verified 12/11/23 17:02) tachycardia Penicillins Allergy (Intermediate, Verified 12/11/23 17:02) tingling Medication List - Last Reconciled 12/11/23 by Opal Parra MD ascorbic acid (vitamin C) 1 g PO BID biotin 10,000 mcg PO DAILY budesonide DR-ER 9 mg (3 x 3 mg) PO QAM coenzyme Q10 300 mg PO DAILY magnesium glycinate 100 mg PO DAILY mesalamine (Lialda) 2.4 grams (2 x 1.2 gram) PO DAILY 8 weeks omeprazole 20 mg PO DAILY turmeric 700 mg PO DAILY Tobacco use date assessed: 09/12/23 Dental Screening Dental Screen Date: 09/12/23 HPI HPI Comments History of Present Illness Details This is a 53-year-old female with multiple sclerosis that comes for her physical exam. Multiple sclerosis is follow by Neurology. Last mammogram was 2023 and was normal. She follows with OBGYN for her Pap smears which are up-to-date as per patient. Colonoscopy done 2023 also. No acute complaints. DEXA scan was done 2021 and this will be repeated. [facility] Medical History Postmenopausal Dyslipidemia Multiple sclerosis Surgical History History of esophagogastroduodenoscopy (EGD) Hx of colonoscopy History of ankle surgery History of Family History Mother Diabetes Hypertension Glaucoma Celiac disease Dementia Father Stroke Hypertension Sister Stomach cancer Social History Housing: House Alcohol intake: current Alcohol intake frequency: a few times a month Alcohol type: hard liquor Patient Tobacco Use Status: Current everyday Tobacco user Tobacco use type: Cigarette Cigarettes Per Day: 2 e-Cigarette/Vaping Use: Never Used Second Hand Smoke Exposure: No service: No Current occupational status: employed Current occupational exposures/hazards: No Cognitive needs: No Hearing needs: No Vision needs: No Questionnaire Thrive Questionnaire Date Thrive assessed: 09/12/23 JOSÉ MIGUEL-7 AMB Questionnaire JOSÉ MIGUEL-7 Date JOSÉ MIGUEL - 7 assessed: 09/12/23 Source: Developed by Drs. Charlie Atkinson, Carina Restrepo, Brady Cerna and colleagues, with an educational chelsey from [employer] Review of Systems Const All systems reviewed & are unremarkable except as noted in HPI and below Card Denies chest pain at rest, Denies chest pain with activity, Denies edema, Denies irregular heart rhythm, Denies claudication, Denies dyspnea, Denies dyspnea on exertion, Denies orthopnea, Denies paroxysmal nocturnal dyspnea and Denies slow heart rate Resp Denies cough, Denies dyspnea and Denies dyspnea on exertion GI Denies abdominal pain, Denies change in bowel habits, Denies excessive flatus, Denies nausea and Denies vomiting Physical exam (Primary Care) Vital Signs: Last Vital Signs BP 102/60 12/11/23 16:53 BMI result Body Mass Index 20.6 Tobacco/Smoking Status: Tobacco use Status Tobacco use date assessed 09/12/23 12/11/23 16:58 Patient Tobacco Use Status Current everyday Tobacco 12/11/23 16:58 Tobacco use type Cigarette 12/11/23 16:58 e-Cigarette/Vaping Use Never Used 12/11/23 16:58 Are you ready to quit: Yes Tobacco cessation counseling provided: Yes Items discussed: [employer] Relapse Prevention: discussed the importance of a supportive environment, discussed negative mood or depression after quitting, weight gain after smoking is common and discussed dietary, exercise and/or lifestyle changes Number of minutes spent counselin CPT code: 62399 - 4-10 Minutes Thrive Assessment: Date of Thrive Assessment Date Thrive assessed 09/12/23 12/11/23 16:58 HENMT Head: Yes normal to inspection, Yes normocephalic and Yes atraumatic Ears: external ears normal Eyes General: appearance normal, both eyes and all related structures Eyelids: Yes eyelids normal Conjunctivae: conjunctivae normal Neck Neck: Yes normal visual inspection and Yes supple Resp Effort & Inspection: normal respiratory effort Auscultation: clear to auscultation bilaterally Cardio Jugular venous distension: no JVD Rate: regular rate Rhythm: regular rhythm Heart sounds: S1 normal heart sound present and S2 normal heart sound present GI Inspection: Yes normal to inspection Palpation (GI): Soft to palpation and nontender Auscultation: normal bowel sounds Skin General skin exam: no rashes or lesions noted Neuro General: no focal motor deficits Extrem General: Yes full ROM Psych Appearance: grossly normal Assessment and Plan Assessment & Plan (1) Encounter for physical examination: Code(s): Z00.00 - Encounter for general adult medical examination without abnormal findings Plan: Repeat in a year. (2) Multiple sclerosis: Comment: [facility] Neurology Code(s): G35 - Multiple sclerosis Plan: Follow-up with neurology. Orders: Orders Liver Panel Today R74.01 - Elevation of levels of liver transaminase levels XR DEXA axial skeleton Today N95.9 - Unspecified menopausal and perimenopausal disorder Coding Level of Care Code Est Pt Prev Care 40-64y(86652) Diagnoses Encounter for physical examination Z00.00 Multiple sclerosis G35 Additional Codes Vital Signs *Quality* - CPT code: 94621 - 4-10 Minutes ([id number]) Time Spent (min) 33
== END 2023-12-11 17:18 | disposition home or self-care (01) ==
PROVIDERS: PCP Internal Medicine; Visit Provider Internal Medicine
DX: Z00.00 Encounter for general adult medical examination without abnormal findings (principal); G35 Multiple sclerosis
CPT/HCPCS: 99396; 99406

== ENCOUNTER 2023-12-23 09:03 | Outpatient (REF) | payer OTHER, SELFPAY ==
[2023-12-23 09:56] LABS: Hematocrit 41.1 % (37.0-47.0); Hemoglobin 13.2 g/dl (12.0-16.0); Mean Corpuscular HGB Conc 32.1 g/dl (31.0-35.0); Mean Corpuscular Hemoglobin 31.1 pg (27.0-33.0); Mean Corpuscular Volume 96.9 fL (80.0-98.0); Mean Platelet Volume 11.3 fL (9.4-12.3); Platelet Count 185 X10*3/uL (160-400); Red Blood Count 4.24 X10*6/uL (4.20-5.50); Red Cell Distribution Width 13.4 % (11.0-16.0); White Blood Count 5.5 X10*3/uL (4.8-10.8)
[2023-12-23 10:44] LABS: Alanine Aminotransferase 27 U/L (0-31); Albumin Level 4.3 g/dL (3.5-5.0); Alkaline Phosphatase 60 U/L (39-117); Aspartate Amino Transferase 27 U/L (5-31); Bilirubin Direct 0.2 mg/dL (0.0-0.5); Bilirubin Total 0.3 mg/dL (0.0-1.0); C Reactive Protein < 0.10 mg/dL (< or = 0.50); Total Protein 7.9 g/dL (6.5-8.0)
[2023-12-23 10:53] LABS: Hepatitis A Antibody IgG Nonreactive (Nonreactive); ~Hepatitis A Antibody IgG 0.31 S/CO (0.00-0.99)
[2023-12-23 10:56] LABS: HBS Num1 0.79 mIU/mL (0-7.99); HBc Num1 0.08 S/CO (0.00-0.79); HBsAGNum1 0.25 S/CO (0.00-0.99); Hepatitis B Core Antibody Nonreactive (Nonreactive); Hepatitis B Surface Antigen Negative (Negative); ~HepC Num1 0.11 S/CO (0.00-0.79); ~Hepatitis B Surface Antibody NONREACTIVE (Nonreactive); ~Hepatitis C Antibody Nonreactive (Nonreactive)
== END 2023-12-23 09:04 | disposition home or self-care (01) ==
LOC: HO.LAB 09:03
PROVIDERS: Absent Provider Internal Medicine; PCP Internal Medicine; Visit Provider Internal Medicine
DX: R74.01 Elevation of levels of liver transaminase levels (principal); K52.9 Noninfective gastroenteritis and colitis, unspecified
CPT/HCPCS: 36415; 80076; 85027; 86140; 86704; 86706; 86708; 86803; 87340

== ENCOUNTER 2024-01-10 09:55 | Outpatient (REF) | payer OTHER, SELFPAY ==
--- NOTE | ~2024-01-10 | MM_ITS ---
EXAMINATION: BONE DENSITOMETRY CLINICAL INDICATION: Menopause. COMPARISON: Baseline BD dated 08/04/2021. TECHNIQUE: Using a [employer] DXA System (software version: 13.1) manufactured by [email or web address], dual-energy x-ray absorptiometry was performed of the lumbar spine and left hip. The images are of good technical quality. Summary results are attached. FINDINGS: LEFT FEMUR, NECK: Current: BMD 0.820 g/cm2, Z-score -0.3, T-score -1.6, osteopenia. Baseline: BMD 0.847 g/cm2. LEFT FEMUR, TOTAL: Current: BMD 0.755 g/cm2, Z-score -1.1, T-score -2.0, osteopenia, 10.2% decrease from baseline (<5% change is not significant). Baseline: BMD 0.841 g/cm2. AP SPINE L1-L4: Current: BMD 1.205 g/cm2, Z-score 1.3, T-score 0.2, normal, 7.9% decrease from baseline (<5% change is not significant). Baseline: BMD 1.308 g/cm2. IDENTIFIED RISK FACTORS: Menopause, family history (parent hip fracture), secondary osteoporosis. HISTORY OF FRACTURE: None listed. MEDICATIONS: Calcium or multivitamin. Vitamin D. MM/XR DEXA axial skeleton IMPRESSION: 1. DIAGNOSIS: Osteopenia based on the lowest T-score value of -2.0 in the total femur applying World Health Organization criteria. 2. 10-YEAR FRACTURE RISK PREDICTION, FRAX: Major osteoporotic fracture (clinical spine, forearm, hip or shoulder) 12.1%. Hip fracture 0.6%. 3. Treatment Recommendations: NOF guidelines recommend consideration for treatment in postmenopausal women and men age 50 and older presenting with the following: -A hip or vertebral (clinical or morphometric) fracture. -T-score less than or equal to -2.5 at the femoral neck or spine after appropriate evaluation to exclude secondary causes. -Low bone mass at the hip or spine and a 10-year fracture probability by FRAX of greater than or equal to 3% for hip fracture or greater than or equal to 20% for major osteoporotic fracture based on the [place] adapted WHO algorithm. 4. Other Recommendations: All treatment decisions require clinical judgment and consideration of individual patient factors, including patient preferences, comorbidities, previous drug use, risk factors not captured in the FRAX model (e.g. frailty, falls, vitamin D deficiency, increased bone turnover, interval significant decline in bone density) and possible under or overestimation of fracture risk by FRAX. Additional medical evaluation for secondary cause of low bone mineral density may be appropriate. FUTURE SCAN RECOMMENDATION: People with diagnosed cases of osteoporosis or at high risk for fracture should have regular bone mineral density tests. For patients eligible for Medicare, routine testing is allowed once every 2 years. The testing frequency can be increased to one year for patients who have rapidly progressing disease, those who are receiving or discontinuing medical therapy to restore bone mass, or have additional risk factors.
== END 2024-01-10 09:56 | disposition home or self-care (01) ==
LOC: HO.MAMMO 09:55
PROVIDERS: PCP Internal Medicine; Visit Provider Internal Medicine
DX: Z13.820 Encounter for screening for osteoporosis (principal); Z78.0 Asymptomatic menopausal state
CPT/HCPCS: 77080

== ENCOUNTER 2024-01-13 11:24 | Outpatient (AMB) | payer OTHER, SELFPAY ==
--- NOTE | 2024-01-13 11:25 | A.OFFVIS_ITS ---
Vital Signs 01/13/24 11:27 Height 5 ft 5 in Weight 125 lb 10.616 oz BMI 20.9 BP 99/55 L Blood Pressure Location Lt brachial Position Sitting Pulse 50 Intake Visit Reasons: IBD Intake Note: Jenny presents in the office as a follow up for IBD. CC: She states that she is not having any concerns at this time. 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 Pt reports having sx a few weeks after yuli and at that time assumed was covid. However persisted even after a few weeks. Was having 7-10 watery BMs per day, even at night time. Stools did not have blood in it. Appetite was ok. Lost almost 10 lbs since May. With this also has intermittent vomiting. Happens on and off every other week. Was throwing up 1-2 times a day. Now since July sx have been improving. In fact today, BMs are formed. Stool was neg for infection. Last colo 2020 - was normal. Nathalia Angel MD. Does not recall interval. Sister: stomach ca dx at 61 y.o of age - in July 2023. EGD/colo 10/29/23: 1. Normal esophagus (biopsy) 2. Hiatal hernia 3. Gastritis (biopsy) 4. Gastric polyps (biopsy) 5. Normal duodenum (biopsy) 6. Normal colon and terminal ileum mucosa (biopsy) 7. Internal hemorrhoids Recommendations:?? * Follow-up path results * Start omeprazole 20mg for 4 weeks * If colon biopsies confirm microscopic colitis, will Rx budesonide. * Repeat colonoscopy for asymptomatic colorectal cancer screening in 10 years. Path: A. Duodenum, biopsy: Duodenal mucosa within normal limits. B. Stomach, random, biopsy: Oxyntic mucosa with moderate chronic inactive inflammation; no Helicobacter organisms seen. C. Stomach, polyps: Clinically polypoid oxyntic mucosa with mild chronic inactive inflammation; no Helicobacter organisms seen. D. Esophagus, lower, biopsy: Squamous epithelium within normal limits; no inflammation seen. E. Esophagus, middle, biopsy: Squamous epithelium within normal limits; no inflammation seen. F. Colon, right, biopsy: Colonic mucosa with expansion of lamina propria chronic inflammatory cells and mild crypt disarray. G. Colon, left, biopsy: Chronic inactive colitis. Comment: Fully developed features of microscopic colitis are not seen, despite the preponderance of lamina propria chronic inflammation. The chronicity in the left colon raises the possibility of inflammatory bowel disease; other etiologies such as drug, chronic infection and diverticular disease should also be considered. No dysplasia or granulomata are seen. 01/13/24: Many thanks to Mari Whitehead to take care of the pt in the interim. Budesonide recommended however pt reluctant to start it as noticed spontaneous imorovement in sx. However objectively, while nausea and vomiting has resolved, she is still having 2-3 loose or soft BMs per day. [facility] Medical History Postmenopausal Dyslipidemia Multiple sclerosis Surgical History History of esophagogastroduodenoscopy (EGD) Hx of colonoscopy History of ankle surgery History of Family History Mother Diabetes Hypertension Glaucoma Celiac disease Dementia Father Stroke Hypertension Sister Stomach cancer Social History Housing: House Alcohol intake: current Alcohol intake frequency: a few times a month Alcohol type: hard liquor Patient Tobacco Use Status: Current everyday Tobacco user Tobacco use type: Cigarette Cigarettes Per Day: 2 e-Cigarette/Vaping Use: Never Used Second Hand Smoke Exposure: No service: No Current occupational status: employed Current occupational exposures/hazards: No Cognitive needs: No Hearing needs: No Vision needs: No Review of Systems Const All systems reviewed & are unremarkable except as noted in HPI and below Physical Exam Vital Signs: Last Vital Signs Pulse 50 01/13/24 11:27 BP 99/55 L 01/13/24 11:27 BMI result Body Mass Index 20.9 Assessment & Plan Assessment & Plan (1) Chronic diarrhea: Code(s): K52.9 - Noninfective gastroenteritis and colitis, unspecified Category: Medical (2) Family history- stomach cancer: Code(s): Z80.0 - Family history of malignant neoplasm of digestive organs Category: Medical Plan Reviewed the bx results in detail with the pt. Essentially either quiscent IBD vs microscopic colitis. Discussed that since budesonide i not systemic, can trial x3 months and monitor response. If BMs revert to normal frequency and consistency was likely the above. If unchanged, will then favor PRN use of imodium for symptomatic management. Re fam hx of gastric ca - no H Pylori, or GIM noted. Can consider repeat EGD in 3 years. Follow up 3 months Medications: Changed From budesonide DR-ER 9 mg (3 x 3 mg) PO QAM 90 ea 3RF To budesonide DR-ER Take 3 pills for 4 weeks then 2 pills for 4 weeks and then 1 pill for 4 weeks orally every morning; 90 ea 2RF 30 days Coding Level of Care Code Est Pt Level 4 (28324) Diagnoses Chronic diarrhea K52.9 Family history- stomach cancer Z80.0
[2024-01-13 11:27] VITALS: BP 99/55; PULSE 50; BMI 20.9
== END 2024-01-13 11:55 | disposition home or self-care (01) ==
PROVIDERS: PCP Internal Medicine; Visit Provider Internal Medicine
DX: K52.9 Noninfective gastroenteritis and colitis, unspecified (principal); Z80.0 Family history of malignant neoplasm of digestive organs
CPT/HCPCS: 99214

== ENCOUNTER → 2024-01-13 11:24 | Outpatient (BNVA) | payer OTHER, SELFPAY | PROVIDERS: PCP Internal Medicine; Visit Provider Internal Medicine ==

== ENCOUNTER 2024-04-13 09:59 | Outpatient (AMB) | payer OTHER, SELFPAY ==
[2024-04-13 10:01] VITALS: BP 107/48; PULSE 55; BMI 21.6
--- NOTE | 2024-04-13 10:01 | A.OFFVIS_ITS ---
Vital Signs 04/13/24 10:01 Height 5 ft 5 in Weight 130 lb 1.164 oz BMI 21.6 BP 107/48 L Blood Pressure Location Lt brachial Position Sitting Pulse 55 Intake Visit Reasons: 3 month follow up Chronic diarrhea Intake Note: Jenny presents in the office as a 3 month follow up for chronic diarrhea. CC: She states that she is not having any concerns and she is feeling okay! Sanitarian Inspector Required: No Allergies acetaminophen [From Percocet] Allergy (Severe, Verified 04/13/24 10:01) tachycardia oxycodone [From Percocet] Allergy (Severe, Verified 04/13/24 10:01) tachycardia Penicillins Allergy (Intermediate, Verified 04/13/24 10:01) tingling HPI Comments Details: 53 y.o F with PMH of MS who is here for chronic diarrhea and intermittent vomiting. Pt reports having sx a few weeks after yuli and at that time assumed was covid. However persisted even after a few weeks. Was having 7-10 watery BMs per day, even at night time. Stools did not have blood in it. Appetite was ok. Lost almost 10 lbs since May. With this also has intermittent vomiting. Happens on and off every other week. Was throwing up 1-2 times a day. Now since July sx have been improving. In fact today, BMs are formed. Stool was neg for infection. Last colo 2020 - was normal. Nathalia Angel MD. Does not recall interval. Sister: stomach ca dx at 61 y.o of age - in July 2023. EGD/colo 10/29/23: 1. Normal esophagus (biopsy) 2. Hiatal hernia 3. Gastritis (biopsy) 4. Gastric polyps (biopsy) 5. Normal duodenum (biopsy) 6. Normal colon and terminal ileum mucosa (biopsy) 7. Internal hemorrhoids Recommendations:?? * Follow-up path results * Start omeprazole 20mg for 4 weeks * If colon biopsies confirm microscopic colitis, will Rx budesonide. * Repeat colonoscopy for asymptomatic colorectal cancer screening in 10 years. Path: A. Duodenum, biopsy: Duodenal mucosa within normal limits. B. Stomach, random, biopsy: Oxyntic mucosa with moderate chronic inactive inflammation; no Helicobacter organisms seen. C. Stomach, polyps: Clinically polypoid oxyntic mucosa with mild chronic inactive inflammation; no Helicobacter organisms seen. D. Esophagus, lower, biopsy: Squamous epithelium within normal limits; no inflammation seen. E. Esophagus, middle, biopsy: Squamous epithelium within normal limits; no inflammation seen. F. Colon, right, biopsy: Colonic mucosa with expansion of lamina propria chronic inflammatory cells and mild crypt disarray. G. Colon, left, biopsy: Chronic inactive colitis. Comment: Fully developed features of microscopic colitis are not seen, despite the preponderance of lamina propria chronic inflammation. The chronicity in the left colon raises the possibility of inflammatory bowel disease; other etiologies such as drug, chronic infection and diverticular disease should also be considered. No dysplasia or granulomata are seen. 01/13/24: Many thanks to Mari Whitehead to take care of the pt in the interim. Budesonide recommended however pt reluctant to start it as noticed spontaneous imorovement in sx. However objectively, while nausea and vomiting has resolved, she is still having 2-3 loose or soft BMs per day. 04/13/24: Here for follow up. Has been doing great. Budesonide taper completed last week around Apr 07. As a reminder is being managed as quiescent IBS vs microscopic colitis. Reports resolution of sx within a week of starting budesonide. No other GI issues at the moment. [facility] Medical History Postmenopausal Dyslipidemia Multiple sclerosis Surgical History History of esophagogastroduodenoscopy (EGD) Hx of colonoscopy History of ankle surgery History of Family History Mother Diabetes Hypertension Glaucoma Celiac disease Dementia Father Stroke Hypertension Sister Stomach cancer Social History Housing: House Alcohol intake: current Alcohol intake frequency: a few times a month Alcohol type: hard liquor Patient Tobacco Use Status: Current everyday Tobacco user Tobacco use type: Cigarette Cigarettes Per Day: 2 e-Cigarette/Vaping Use: Never Used Second Hand Smoke Exposure: No service: No Current occupational status: employed Current occupational exposures/hazards: No Cognitive needs: No Hearing needs: No Vision needs: No Review of Systems Const All systems reviewed & are unremarkable except as noted in HPI and below Physical Exam Vital Signs: Last Vital Signs Pulse 55 04/13/24 10:01 BP 107/48 L 04/13/24 10:01 BMI result Body Mass Index 21.6 No apparent distress Nonicteric Abdomen soft, nondistended Alert and oriented x3, normal gait Assessment & Plan Assessment & Plan (1) Chronic diarrhea: Code(s): K52.9 - Noninfective gastroenteritis and colitis, unspecified Category: Medical (2) Family history- stomach cancer: Code(s): Z80.0 - Family history of malignant neoplasm of digestive organs Category: Medical Plan Reviewed the bx results in detail with the pt. Essentially either quiscent IBD vs microscopic colitis. Responded well to budesonide x3 months. Reviewed that if only has 1 or less flare per year, can repeat this as needed. If has >1 flare, will likely need to reassess endoscopically. Re fam hx of gastric ca - no H Pylori, or GIM noted. Can consider repeat EGD in 2026. Follow up 6 months Medications: Discontinued mesalamine (Lialda) Discontinued Reason: Patient no longer taking 2.4 grams (2 x 1.2 gram) PO DA ALEC 8 weeks 112 tabs 3RF Coding Level of Care Code Est Pt Level 3 (07755) Diagnoses Chronic diarrhea K52.9 Family history- stomach cancer Z80.0
== END 2024-04-13 10:24 | disposition home or self-care (01) ==
PROVIDERS: PCP Internal Medicine; Visit Provider Internal Medicine
DX: K52.9 Noninfective gastroenteritis and colitis, unspecified (principal); Z80.0 Family history of malignant neoplasm of digestive organs
CPT/HCPCS: 99213

== ENCOUNTER → 2024-04-13 09:59 | Outpatient (BNVA) | payer OTHER, SELFPAY | PROVIDERS: PCP Internal Medicine; Visit Provider Internal Medicine ==

== ENCOUNTER 2024-10-02 09:52 | Outpatient (REF) | payer OTHER, SELFPAY | END 2024-10-02 09:53 | disposition home or self-care (01) | LOC: HO.MAMMO 09:52 | PROVIDERS: PCP Internal Medicine; Visit Provider Internal Medicine | DX: Z12.31 Encounter for screening mammogram for malignant neoplasm of breast (principal) | CPT/HCPCS: 77063; 77067 ==

== ENCOUNTER → 2024-10-02 10:00 | Outpatient (BNV) | payer OTHER, SELFPAY | PROVIDERS: PCP Internal Medicine; Visit Provider Internal Medicine | DX: Z12.31 Encounter for screening mammogram for malignant neoplasm of breast (principal) | CPT/HCPCS: 77063; 77067 ==

== ENCOUNTER 2024-10-12 09:50 | Outpatient (AMB) | payer OTHER, SELFPAY ==
--- NOTE | 2024-10-12 09:52 | A.OFFVIS_ITS ---
Vital Signs 10/12/24 09:53 Height 5 ft 5 in Weight 134 lb 7.712 oz BMI 22.4 BP 117/57 L Blood Pressure Location Lt brachial Position Sitting Pulse 58 Intake Visit Reasons: 6 mo F/U Colitis Intake Note: Jenny presents in as a 6 month follow up. CC: No concerns or symptoms today! 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 Pt reports having sx a few weeks after yuli and at that time assumed was covid. However persisted even after a few weeks. Was having 7-10 watery BMs per day, even at night time. Stools did not have blood in it. Appetite was ok. Lost almost 10 lbs since May. With this also has intermittent vomiting. Happens on and off every other week. Was throwing up 1-2 times a day. Now since July sx have been improving. In fact today, BMs are formed. Stool was neg for infection. Last colo 2020 - was normal. Nathalia Angel MD. Does not recall interval. Sister: stomach ca dx at 61 y.o of age - in July 2023. EGD/colo 10/29/23: 1. Normal esophagus (biopsy) 2. Hiatal hernia 3. Gastritis (biopsy) 4. Gastric polyps (biopsy) 5. Normal duodenum (biopsy) 6. Normal colon and terminal ileum mucosa (biopsy) 7. Internal hemorrhoids Recommendations:?? * Follow-up path results * Start omeprazole 20mg for 4 weeks * If colon biopsies confirm microscopic colitis, will Rx budesonide. * Repeat colonoscopy for asymptomatic colorectal cancer screening in 10 years. Path: A. Duodenum, biopsy: Duodenal mucosa within normal limits. B. Stomach, random, biopsy: Oxyntic mucosa with moderate chronic inactive inflammation; no Helicobacter organisms seen. C. Stomach, polyps: Clinically polypoid oxyntic mucosa with mild chronic inactive inflammation; no Helicobacter organisms seen. D. Esophagus, lower, biopsy: Squamous epithelium within normal limits; no inflammation seen. E. Esophagus, middle, biopsy: Squamous epithelium within normal limits; no inflammation seen. F. Colon, right, biopsy: Colonic mucosa with expansion of lamina propria chronic inflammatory cells and mild crypt disarray. G. Colon, left, biopsy: Chronic inactive colitis. Comment: Fully developed features of microscopic colitis are not seen, despite the preponderance of lamina propria chronic inflammation. The chronicity in the left colon raises the possibility of inflammatory bowel disease; other etiologies such as drug, chronic infection and diverticular disease should also be considered. No dysplasia or granulomata are seen. 01/13/24: Many thanks to Mari Whitehead to take care of the pt in the interim. Budesonide recommended however pt reluctant to start it as noticed spontaneous imorovement in sx. However objectively, while nausea and vomiting has resolved, she is still having 2-3 loose or soft BMs per day. 04/13/24: Here for follow up. Has been doing great. Budesonide taper completed last week around Apr 07. As a reminder is being managed as quiescent IBS vs microscopic colitis. Reports resolution of sx within a week of starting budesonide. No other GI issues at the moment. 10/12/24: Here for routine 6 month follow up. No abd pain, N,V. Doing well. BMs are formed without blood. Typically etOH exacerbates sx and causes loose BMs for 1-2 days. Has not had any changes in sx/bowel habits for more than 3-5 days since the budesonide course in Mar 2024. [facility] Medical History Postmenopausal Dyslipidemia Multiple sclerosis Surgical History History of esophagogastroduodenoscopy (EGD) Hx of colonoscopy History of ankle surgery History of Family History Mother Diabetes Hypertension Glaucoma Celiac disease Dementia Father Stroke Hypertension Sister Stomach cancer Social History Housing: House Alcohol intake: current Alcohol intake frequency: a few times a month Alcohol type: hard liquor Patient Tobacco Use Status: Current everyday Tobacco user Tobacco use type: Cigarette Cigarettes Per Day: 2 e-Cigarette/Vaping Use: Never Used Second Hand Smoke Exposure: No service: No Current occupational status: employed Current occupational exposures/hazards: No Cognitive needs: No Hearing needs: No Vision needs: No Review of Systems Const All systems reviewed & are unremarkable except as noted in HPI and below Physical Exam Vital Signs: Last Vital Signs Pulse 58 10/12/24 09:53 BP 117/57 L 10/12/24 09:53 BMI result Body Mass Index 22.4 No apparent distress Nonicteric Abdomen soft, nondistended Alert and oriented x3, normal gait Assessment & Plan Assessment & Plan (1) Intermittent vomiting: Code(s): R11.10 - Vomiting, unspecified Category: Medical (2) Chronic diarrhea: Code(s): K52.9 - Noninfective gastroenteritis and colitis, unspecified Category: Medical (3) Family history- stomach cancer: Code(s): Z80.0 - Family history of malignant neoplasm of digestive organs Category: Medical Plan Reviewed the bx results in detail with the pt. Essentially either quiscent IBD vs microscopic colitis. Responded well to budesonide x3 months. Reviewed to call office if has N/V x more than 3 days or diarrhea x more than 5- 7 days, to call our office. Otherwise follow up in 1 year. If only has 1 or less flare per year, can repeat budesonide. If has >1 flare, will likely need to reassess endoscopically. Re fam hx of gastric ca - no H Pylori, or GIM noted. Can consider repeat EGD in 2026 years. Follow up 1 year - ok for tele if pt asymptomatic Coding Level of Care Code Est Pt Level 3 (26738) Diagnoses Intermittent vomiting R11.10 Chronic diarrhea K52.9 Family history- stomach cancer Z80.0
[2024-10-12 09:53] VITALS: BP 117/57; PULSE 58; BMI 22.4
== END 2024-10-12 10:18 | disposition home or self-care (01) ==
LOC: HO.HGI 09:51
PROVIDERS: PCP Internal Medicine; Visit Provider Internal Medicine
DX: R11.10 Vomiting, unspecified (principal); K52.9 Noninfective gastroenteritis and colitis, unspecified; Z80.0 Family history of malignant neoplasm of digestive organs
CPT/HCPCS: 99213

== ENCOUNTER 2024-11-10 08:50 | Outpatient (REF) | payer OTHER, SELFPAY ==
--- NOTE | ~2024-11-10 | US_ITS ---
EXAMINATION: MM DIAGNOSTIC DIGITAL BREAST TOMOSYNTHESIS, RIGHT Limited right breast ultrasound. CLINICAL INFORMATION: Focal asymmetry in the upper outer right breast posterior depth. COMPARISON: Mammography: [facility] on PACS. TECHNIQUE: Digital breast tomosynthesis is performed in both the craniocaudal and mediolateral oblique views along with computer-aided detection (CAD). Synthesized 2D images are generated from the tomosynthesis. FINDINGS: There are scattered areas of fibroglandular density (ACR BI-RADS breast composition Category b). Focal asymmetry in the upper outer breast partially effaces but persist on additional imaging projections. Suspicious calcifications or other abnormal findings. Targeted color Doppler ultrasound scanning in the upper outer quadrant demonstrates a hypoechoic oval circumscribed solid mass versus complicated cyst at 9:00 7 cm from the nipple measuring 4 x 2 x 3 mm this is a questionable correlate for the focal asymmetry on mammography. There is no internal vascular flow. US/US breast RT limited mamm only IMPRESSION: Focal asymmetry in the upper outer quadrant posterior depth with questionable sonographic correlate of a simple to minimally complicated cyst at 9:00 7 cm from the nipple. Recommend 6 month follow-up ultrasound and mammogram for further evaluation of stability. ASSESSMENT: BI-RADS BI-RADS 3 - Probably benign finding(s) - 6 month follow-up suggested RECOMMENDATION: 6 Month F/U Results were provided to the patient at time of visit by the technologist. This patient's information was entered into a reminder system with a target due date for their next mammogram. Electronically signed by: aTsha Zamudio DO 11/10/2024 11:11 AM EDT
== END 2024-11-10 08:51 | disposition home or self-care (01) ==
LOC: HO.MAMMO 08:50
PROVIDERS: PCP Internal Medicine; Visit Provider Internal Medicine
DX: N64.89 Other specified disorders of breast (principal)
CPT/HCPCS: 76642; 77061; 77065

== ENCOUNTER → 2024-11-10 09:00 | Outpatient (BNV) | payer OTHER, SELFPAY | PROVIDERS: PCP Internal Medicine; Visit Provider Internal Medicine | DX: N63.10 Unspecified lump in the right breast, unspecified quadrant (principal) | CPT/HCPCS: 76642; 77061; 77065 ==

== ENCOUNTER 2024-12-24 17:24 | Outpatient (AMB) | payer OTHER, SELFPAY ==
--- NOTE | 2024-12-24 17:29 | A.OFFPC_ITS ---
Vital Signs 12/24/24 17:30 Height 5 ft 5 in Weight 134 lb BMI 22.3 BP 108/70 Blood Pressure Location Lt brachial Position Sitting Intake Visit Reasons: PHYSICAL Intake Note: Patient here for a physical exam Apartment Rental Agent Required: No Accompanied by: Self / Same As Patient Allergies acetaminophen (From Percocet) Allergy (Severe, Verified 12/24/24 17:35) tachycardia oxycodone (From Percocet) Allergy (Severe, Verified 12/24/24 17:35) tachycardia Penicillins Allergy (Intermediate, Verified 12/24/24 17:35) tingling Medication List - Last Reconciled 12/24/24 by Opal Parra MD ascorbic acid (vitamin C) 1 g PO BID biotin 10,000 mcg PO DAILY calcium carbonate-vitamin D3 500 mg-10 mcg (400 unit) (Oyster Shell Calcium- Vitamin D3) 1 tab PO BID 90 days coenzyme Q10 300 mg PO DAILY magnesium glycinate 100 mg PO DAILY turmeric 700 mg PO DAILY Tobacco use date assessed: 12/24/24 Dental Screening Dental Screen Date: 12/24/24 Did you have a dental visit in the last 12 months?: Yes Did you have a dental problem in the last 6 months where you did not have access to dental care?: No Was dental information given to patient?: Patient has dentist HPI HPI Comments History of Present Illness Details This is a 54-year-old female with multiple sclerosis that comes for her physical exam. Multiple sclerosis is follow by Neurology and has been in remission. Colonoscopy done last year was normal. Vaccines are up-to-date. Had mammogram last month which was normal. Developed axillary lumps in left side. Will order ultrasound and mammogram again. DEXA scan done 2023 and next DEXA should be 2025. Also complains of left ear discomfort and pain. [facility] Medical History (Updated 12/24/24 @ 17:52 by Opal Parra MD) Postmenopausal Dyslipidemia Multiple sclerosis Surgical History History of esophagogastroduodenoscopy (EGD) Hx of colonoscopy History of ankle surgery History of Family History (Updated 12/24/24 @ 17:39 by Opal Parra MD) Mother Diabetes Hypertension Glaucoma Celiac disease Dementia Father Stroke Hypertension Sister Stomach cancer Social History (Updated 12/24/24 @ 17:40 by Opal Parra MD) Housing: House Alcohol intake: current Alcohol intake frequency: a few times a week Alcohol type: hard liquor Patient Tobacco Use Status: Former Tobacco user Tobacco use type: Cigarette Cigarettes Per Day: 2 e-Cigarette/Vaping Use: Never Used Second Hand Smoke Exposure: No service: No Current occupational status: employed Current occupational exposures/hazards: No Cognitive needs: No Hearing needs: No Vision needs: No Questionnaire PHQ-9 Over the last 2 weeks, how often have you been bothered by any of the following problems? 1. Little interest or pleasure in doing things: not at all 2. Feeling down, depressed, or hopeless: not at all 3. Trouble falling or staying asleep, or sleeping too much: not at all 4. Feeling tired or having little energy: not at all 5. Poor appetite or overeating: not at all 6. Feeling bad about yourself - or that you are a failure or have let yourself or your family down: not at all 7. Trouble concentrating on things, such as reading the newspaper or watching television: not at all 8. Moving or speaking so slowly that other people could have noticed. Or the opposite - being so fidgety or restless that you have been moving around a lot more than usual: not at all 9. Thoughts that you would be better off or of hurting yourself in some way: not at all Total score: 0 Depression Screening Interpretation: Negative Depression Screening Done: Yes 67899 - PHQ-9 Billing: Yes Source: Developed by Drs. Charlie Atkinson, Carina Restrepo, Brady Cerna and colleagues, with an educational chelsey from [employer]. Thrive Questionnaire Date Thrive assessed: 12/24/24 I am a: Patient What is your living situation today?: I have a steady place to live Within the past 12 months, did the food you bought not last and you didn't have the money to get more?: Never true Within the past 12 months, did you worry whether your food would run out before you got money to buy more?: Never true Do you have trouble paying for medicines?: No Do you have trouble getting transportation to medical appointments?: No Do you have trouble paying your heating and electricity bill?: No Do you have trouble taking care of your child, family member or friend?: No Do you have trouble with day-to-day activities such as bathing, preparing meals, shopping, managing finances, etc.?: No Are you currently unemployed and looking for a job?: No Are you interested in more education?: No Please select the resources that you would like help with: None Currently or been in a relationship where the following occur: No concerns reported THRIVE Score: 0 AUDIT C Alcohol Use Questionnaire (AUDIT-C) 1. How often do you have a drink containing alcohol?: 2-3 times a week 2. How many drinks containing alcohol do you have on a typical day when you are drinking?: 1 or 2 3. How often do you have six or more drinks on one occasion?: Never Total Score: 3 JOSÉ MIGUEL-7 AMB Questionnaire JOSÉ MIGUEL-7 Date JOSÉM IGUEL - 7 assessed: 12/24/24 Feeling nervous, anxious, or on edge: 0 = Not at all Not being able to stop or control worryin = Not at all Worrying too much about different things: 0 = Not at all Trouble relaxin = Not at all Being so restless that it is hard to sit still: 0 = Not at all Becoming easily annoyed or irritable: 0 = Not at all Feeling afraid as if something awful might happen: 0 = Not at all Total JOSÉ MIGUEL-7 score (0-4 normal; 5-9 mild; 10-14 moderate; 15-21 severe): 0 Source: Developed by Drs. Charlie Atkinson, Carina Restrepo, Brady Cerna and colleagues, with an educational chelsey from [employer]. JOSÉ MIGUEL-7 Assessment Billing JOSÉ MIGUEL-7 Assessment Tool: JOSÉ MIGUEL-7 Assessment 73426 Review of Systems Const All systems reviewed & are unremarkable except as noted in HPI and below Card Denies chest pain at rest, Denies chest pain with activity, Denies edema, Denies irregular heart rhythm, Denies claudication, Denies dyspnea, Denies dyspnea on exertion, Denies orthopnea, Denies paroxysmal nocturnal dyspnea and Denies slow heart rate Resp Denies cough, Denies dyspnea and Denies dyspnea on exertion GI Denies abdominal pain, Denies change in bowel habits, Denies excessive flatus, Denies nausea and Denies vomiting Denies urinary incontinence, Denies urinary hesitancy and Denies urinary urgency Musc Denies abnormal gait, Denies atrophy, Denies deformity and Denies limited range of motion Skin/Breast Denies bleeding lesions, Denies changing lesions and Denies rash Neuro Denies abnormal gait and Denies lack of coordination Physical exam (Primary Care) Vital Signs: Last Vital Signs BP 108/70 12/24/24 17:30 BMI result Body Mass Index 22.3 Tobacco/Smoking Status: Tobacco use Status Tobacco use date assessed 12/24/24 12/24/24 17:35 Patient Tobacco Use Status Current everyday Tobacco 12/24/24 17:35 Tobacco use type Cigarette 12/24/24 17:35 e-Cigarette/Vaping Use Never Used 12/24/24 17:35 PHQ-9: PHQ-9 Score PHQ-9: Total score 0 12/24/24 17:41 Depression Screening Interpretation: Negative Thrive Assessment: Date of Thrive Assessment Date Thrive assessed 12/24/24 12/24/24 17:35 Currently or been in a relationship where the following occur: No concerns reported HENPR Head: Yes normal to inspection, Yes normocephalic and Yes atraumatic Ears: external ears normal Eyes General: appearance normal, both eyes and all related structures Eyelids: Yes eyelids normal Conjunctivae: conjunctivae normal Neck Neck: Yes normal visual inspection and Yes supple Chest Breast/axilla palpation: abnormal palpation of the axilla (2 palpable mobile lumps in left) Resp Effort & Inspection: normal respiratory effort Auscultation: clear to auscultation bilaterally Cardio Jugular venous distension: no JVD Rate: regular rate Rhythm: regular rhythm Heart sounds: S1 normal heart sound present and S2 normal heart sound present GI Inspection: Yes normal to inspection Palpation (GI): Soft to palpation and nontender Auscultation: normal bowel sounds Skin General skin exam: no rashes or lesions noted Neuro General: no focal motor deficits Extrem General: Yes full ROM Psych Appearance: grossly normal Coding Level of Care Code Est Pt Level 3 (62382) Est Pt Prev Care 40-64y(38146) Diagnoses Encounter for physical examination Z00.00 Multiple sclerosis G35 Axillary lump R22.30 Left ear pain H92.02 Additional Codes JOSÉ MIGUEL-7 Assessment Billing - JOSÉ MIGUEL-7 Assessment Tool: JOSÉ MIGUEL-7 Assessment 22556 ([id number]) PHQ-9 - 57026 - PHQ-9 Billing: Yes ([id number]) Time Spent (min) 33 Assessment & Plan Assessment & Plan (1) Encounter for physical examination: Code(s): Z00.00 - Encounter for general adult medical examination without abnormal findings Category: Medical (2) Multiple sclerosis: Comment: [facility] Code(s): G35 - Multiple sclerosis Category: Medical (3) Axillary lump: Code(s): R22.30 - Localized swelling, mass and lump, unspecified upper limb Category: Medical (4) Left ear pain: Code(s): H92.02 - Otalgia, left ear Category: Medical Plan Repeat physical exam in a year. Follow-up with [facility] for multiple sclerosis. Referred to ENT for left ear pain. Order diagnostic mammogram and ultrasound of left breast. Orders: Orders US breast LT limited 12/24/24 R22.30 - Localized swelling, mass and lump, unspecified upper limb Lipid Panel 12/24/24 E78.5 - Hyperlipidemia, unspecified Comprehensive [place]. Panel Fast 12/24/24 Z00.00 - Encounter for general adult medical examination without abnormal findings Referrals Ear/Nose/Throat Referral H92.02 - Otalgia, left ear Medications: New sulfamethoxazole-trimethoprim 800-160 mg (Bactrim DS) 1 tab PO BID 20 tabs 0RF 10 days
[2024-12-24 17:30] VITALS: BP 108/70; BMI 22.3
== END 2024-12-24 17:49 | disposition home or self-care (01) ==
LOC: HO.HMCH 17:24
PROVIDERS: PCP Internal Medicine; Visit Provider Internal Medicine
DX: Z00.00 Encounter for general adult medical examination without abnormal findings (principal); G35 Multiple sclerosis; R22.30 Localized swelling, mass and lump, unspecified upper limb; H92.02 Otalgia, left ear

== ENCOUNTER → 2024-12-24 17:24 | Outpatient (BNVA) | payer OTHER, SELFPAY | PROVIDERS: PCP Internal Medicine; Visit Provider Internal Medicine | DX: Z00.00 Encounter for general adult medical examination without abnormal findings (principal); H92.02 Otalgia, left ear; G35 Multiple sclerosis; R22.30 Localized swelling, mass and lump, unspecified upper limb | CPT/HCPCS: 96127 ==

== ENCOUNTER 2025-01-11 08:11 | Outpatient (REF) | payer OTHER, SELFPAY ==
[2025-01-11 10:33] LABS: Alanine Aminotransferase 34 U/L (0-31); Albumin Level 4.3 g/dL (3.5-5.0); Alkaline Phosphatase 60 U/L (39-117); Anion Gap 12 (12-20); Aspartate Amino Transferase 31 U/L (5-31); Blood Urea Nitrogen 18 mg/dL (9-16); Calcium 9.4 mg/dL (8.4-10.2); Carbon Dioxide 28 mmol/L (22-29); Chloride 108 mmol/L (96-108); Cholesterol 204 mg/dL (<200); Estimated Glomerular Filt Rate > 60; HDL Cholesterol 70 mg/dL (>40); Potassium 4.1 mmol/L (3.3-5.1); Sodium 144 mmol/L (135-145); Total Protein 7.3 g/dL (6.5-8.0); Triglycerides 99 mg/dL (<150)
== END 2025-01-11 08:12 | disposition home or self-care (01) ==
LOC: HO.LAB 08:11
PROVIDERS: PCP Internal Medicine; Visit Provider Internal Medicine
DX: Z00.00 Encounter for general adult medical examination without abnormal findings (principal); E78.5 Hyperlipidemia, unspecified
CPT/HCPCS: 36415; 80053; 80061